=== PATIENT | female | born 1965 | race Caucasian/White ===

== ENCOUNTER 2016-06-15 11:01 | Emergency (ER) | payer OTHER ==
[~2016-06-15] VITALS: Ht 152.4 cm; Wt 90.3 kg
[~2016-06-15 11:01] MED LIST: LEVOTHYROXINE100 MC1 PO; LIPITOR40 M1 PO; MOBIC15 M1 PO; TRAMADOL HCL50 M1 PO
--- NOTE | 2016-06-15 11:47 | ED GENERAL ADULT ---
History of Present Illness General Chief Complaint: General Adult Stated Complaint: VASQUEZ/ RT EAR PAIN Source: patient Exam Limitations: no limitations Allergies Coded Allergies: Penicillins (CHILDHOOD REACTION PER PT 08/26/15) Triage Note: PT TO ED WITH C/O RIGHT EAR AND HEADACHE PAIN SINCE YESTERDAY. Triage Nurses Notes Reviewed? yes HPI: 50 year old woman with a past medical history of TMJ, obesity and hypothyroidism seen for evaluation of right sided head/ear pain for three days. She reports mild episodes of similar pain throughout her life that respontaneously resolve. She was reported diagnosed with TMJ by her dentist in the distant past. (AIMEE RING MD) Vital Signs & Intake/Output Vital Signs & Intake/Output Vital Signs Date Time Temp Pulse Resp B/P Pulse O2 O2 Flow FiO2 Ox Delivery Rate 06/15 1356 98.7 78 18 145/78 98 Room Air 06/15 1108 98.0 80 20 130/73 98 Room Air Room Air Reconcile Medications Atorvastatin Calcium (Lipitor) (Unknown Strength) TABLET (Unknown Dose) PO DAILY CHOLESTEROL (Reported) Diazepam (Valium) 5 MG TABLET 1 TAB PO BID MUSCLE SPASM Levothyroxine Sodium 100 MCG TABLET 0.5 TAB PO DAILY AC THYROID (Reported) Meloxicam (Mobic) 15 MG TABLET 1 TAB PO DAILY PAIN Naproxen 500 MG TABLET 1 TAB PO BID PAIN Oxycodone HCl/Acetaminophen (Percocet 5-325 MG Tablet) 5 MG-325 MG TABLET 1 TAB PO BID SEVERE PAIN (FRANCES NEUMANN,JACOBO Kelly) Past History Travel History Traveled to [place] past 21 day No Medical History Any Pertinent Medical History? 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 No (AIMEE RING MD) Review of Systems Review of Systems Constitutional: Reports: see HPI. (AIMEE RING MD) Review of Systems EENTM: Reports: see HPI. Respiratory: Reports: no symptoms. Cardiovascular: Reports: no symptoms. GI: Reports: no symptoms. Genitourinary: Reports: no symptoms. Musculoskeletal: Reports: no symptoms. Neurological/Psychological: Reports: no symptoms. Immunologic/Allergic: Reports: no symptoms. (FRANCES NEUMANN,JACOBO Kelly) Physical Exam Physical Exam General Appearance: well developed/nourished, alert, awake, anxious, moderate distress Comments: General -well-developed, obese middle-aged woman in moderate distress HEENT - NCAT, PERRLA, EOMI, severe right temporal tenderness, no frontal sinus tenderness, mild right maxillary sinus tenderness, extra auditory canals clear bilaterally, moderate right sided neck tenderness, right TMJ tenderness with mild soft tissue swelling no appreciated stones, anicteric sclera Cardio - S1, S2 w/o murmurs/gallops/rubs Resp - CTA bilaterally w/o wheezing/rhochi/crackles GI - soft, nontender, nondistended, bowel sounds present Neuro - Awake and alert, CN II - XII grossly intact Extremities -normal pulses, no cyanosis/clubbing/edema Core Measures ACS in differential dx? No CVA/TIA Diagnosis: No Severe Sepsis Present: No Septic Shock Present: No (JHONATHAN NEUMANN,AIMEE) Physical Exam Head: atraumatic, normal appearance Eyes: Bilateral: PERRL, EOMI. Ears, Nose, Throat: very painful to open mouth, positive click on right, TN's normal Neck: normal inspection, supple, full range of motion Respiratory: normal breath sounds, chest non-tender, no respiratory distress, lungs clear Cardiovascular: regular rate/rhythm, normal peripheral pulses Gastrointestinal: normal bowel sounds, soft, non-tender, no organomegaly Extremities: normal inspection, normal capillary refill, normal range of motion, no edema Neurologic/Psych: no motor/sensory deficits, awake, alert, oriented x 3, normal mood/affect Skin: intact, normal color, warm/dry (FRANCES NEUMANN,JACOBO Kelly) Progress Differential Diagnoses I considered the following diagnoses in my evaluation of the patient: TMJ, parotitis, Meningitis, temporal arteritis, dental abscess Initial ED EKG: none Comments: Present illness it is reasonable to consider diagnoses such as TMJ exacerbation, parotitis, meningitis, and temporal cell arteritis. For evaluation of these conditions a complete blood count was obtained that was within normal limits, ESR was 20, and serum chemistries were also within normal limits. Patient's physical examination is highly suggestive of TMJ and given her history of this she was given Valium and morphine for pain relief. She is to be discharged home with prescription of Valium and instruction to follow-up with her dentist as an outpatient for further evaluation. (JHONATHAN NEUMANN,AIMEE) Differential Diagnoses I considered the following diagnoses in my evaluation of the patient: Plan of Care: Orders Procedure Date/time Status MAGNESIUM 06/15 1144 Complete WESTERGREN SED RATE 06/15 1144 Complete COMPREHENSIVE METABOLIC PANEL 06/15 1144 Complete CBC WITHOUT DIFFERENTIAL 06/15 1144 Complete Current Medications Sig/Arnulfo Start time Last Medication Dose Stop Time Status Admin Oxycodone/ 1 TAB ONCE ONE 06/15 1145 CAN Acetaminophen 06/15 1146 (Percocet) Laboratory Tests 06/15/16 1155: Anion Gap 11, Estimated GFR > 60, BUN/Creatinine Ratio 14.3, Glucose 106 H, Calcium 9.7, Magnesium 1.9, Total Bilirubin 0.6, AST 32, ALT 53 H, Alkaline Phosphatase 116, Total Protein 8.0, Albumin 4.6, Globulin 3.4, Albumin/Globulin Ratio 1.4, CBC w Diff NO MAN DIFF REQ, RBC 5.41 H, MCV 85.9, MCH 28.7, RDW 14.1 , MPV 8.0, Gran % 74.2, Lymphocytes % 17.8 L, Monocytes % 6.2, Eosinophils % 1.4, Basophils % 0.4, Absolute Granulocytes 7.5 H, Absolute Lymphocytes 1.8, Absolute Monocytes 0.6, Absolute Eosinophils 0.1, Absolute Basophils 0, PUBS MCHC 33.5, ESR Westergren 20 Diagnostic Imaging: Viewed by Me: CT Scan. Discussed w/RAD: CT Scan. Radiology Impression: PATIENT: GUY LANE PRESENT AGE: 50 PATIENT ACCOUNT NO: [id number] : 64 LOCATION: [facility] ORDERING PHYSICIAN: AIMEE RING MD SERVICE DATE: 06/15/16 EXAM TYPE: CAT - CT CERV SPINE WO IV CONTRAST EXAMINATION: CT CERVICAL SPINE WITHOUT CONTRAST CLINICAL INFORMATION: Head injury following fall 3 days ago. COMPARISON: Plain films of the cervical spine 08/26/2015. TECHNIQUE: Multiple axial CT images of the cervical spine were performed, without intravenous contrast. 2-D coronal and sagittal reformatted images were obtained at the acquisition workstation. DLP: 950 mGy-cm FINDINGS: No acute cervical spine fracture or subluxation is identified. There is mild straightening of the cervical spine, which is entirely nonspecific but may be secondary to patient neck positioning within the CT gantry or muscle spasming. The prevertebral soft tissues are within normal limits. The atlantoaxial and craniocervical junctions are intact. The visualized bilateral lung apices are grossly clear. IMPRESSION: No acute cervical spine fracture or subluxation. DICTATED BY: JEANNIE TORREZ MD DATE/TIME DICTATED:1536 TALENT ACQUISITION LEAD:TANA DATE/TIME TRANSCRIBED:06/15/161536 CONFIDENTIAL, DO NOT COPY WITHOUT APPROPRIATE AUTHORIZATION. <Electronically signed in Other Vendor System> SIGNED BY: JEANNIE TORREZ MD 06/15/16 1544, PATIENT: GUY LANE PRESENT AGE: 50 PATIENT ACCOUNT NO: [id number] : 64 LOCATION: [facility] ORDERING PHYSICIAN: AIMEE RING MD SERVICE DATE: 06/15/16 EXAM TYPE: CAT - CT MAXILLOFACIAL W/O CON EXAMINATION: CT MAXILLOFACIAL WITHOUT CONTRAST CLINICAL INFORMATION: Status post fall and head injury 3 days ago. COMPARISON: None. TECHNIQUE: Multidetector helical imaging was performed in the axial plane with generation of coronal and sagittal reformatted images. DLP: 950 mGy-cm FINDINGS: There are age- indeterminate bilateral nasal bone fractures as well as nondisplaced fractures involving the nasal processes of the maxilla. No additional maxillofacial fractures are identified. The lamina papyracea are intact. The bilateral globes and orbits appear unremarkable. No orbital or floor orbital roof fractures are identified and there is no significant intraconal or extraconal stranding. No retrobulbar hematoma is visualized. Evaluation of the paranasal sinuses demonstrates minimal to moderate mucosal thickening of the left maxillary sinus. The remaining imaged paranasal sinuses and mastoid air cells are well aerated. The carotid canals are normally covered by bone. The ethmoid roofs are symmetric. The bilateral temporomandibular joints are intact. There are degenerative changes involving the left temporomandibular joint with associated flattening of the left mandibular condyle. Incidental note is made of an unerupted mature tube within the maxilla. Limited evaluation of the intracranial contents demonstrates no acute intracranial findings. IMPRESSION: 1. Age- indeterminate bilateral nasal bone fractures as well as nondisplaced fractures involving the nasal processes of the maxilla. Correlate with physical exam and patient symptomatology. 2. Degenerative changes of the left temporal mandibular joint, with associated flattening of the mandibular condyle. No appreciable dislocation of the bilateral temporomandibular joints. DICTATED BY: JEANNIE TORREZ MD DATE/TIME DICTATED:06/15/161515 TALENT ACQUISITION LEAD:TANA DATE/TIME TRANSCRIBED:06/15/161515 CONFIDENTIAL, DO NOT COPY WITHOUT APPROPRIATE AUTHORIZATION. <Electronically signed in Other Vendor System> SIGNED BY: JEANNIE TORREZ MD 06/15/16 4835 (FRANCES NEUMANN,JACOBO Kelly) Departure Departure Disposition: HOME OR SELF CARE Condition: Stable Clinical Impression Primary Impression: TMJ syndrome Referrals: JA NEUMANN,DAVE CASTRO (PCP/Family) Additional Instructions: Take your naproxen, valium, and percocet as directed. Follow up with a Dentist after discharge for further evaluation of your Jaw Pain. Departure Forms: Customer Survey General Discharge Information (JHONATHAN NEUMANN,AIMEE) Departure Prescriptions: Current Visit Scripts Diazepam (Valium) 1 TAB PO BID #14 TAB Naproxen 1 TAB PO BID #60 TAB Oxycodone HCl/Acetaminophen (Percocet 5-325 MG Tablet) 1 TAB PO BID #10 TAB Resident Co-Sign Statement Statement: ED Attending supervision documentation- [x] I saw and evaluated the patient. I have also reviewed all the pertinent lab results and diagnostic results. I agree with the findings and the plan of care as documented in the Resident's documentation. [x] I have reviewed the ED Record and agree with the Resident's documentation. [] Additions or exceptions (if any) to the Resident's note and plan are summarized below: [Personally seen and examined this patient. The deep no agree with what has been written. Patient presents with right-sided jaw pain radiating up to her head and down into her neck. Patient states the pain is constant and increases when she attempts to open her mouth. Patient states that she does suffer from TMJ but is never been this bad. There is no difficulty breathing or swallowing. Pain 7 out of 10. On exam she has a clip on the right side. Her blood work and CAT scan are normal. Patient will be discharged home with follow-up with dental.] (FRANCES NEUMANN,JACOBO Kelly) Critical Care Note Critical Care Note Critical Care Time: non-applicable (JHONATHAN NEUMANN,AIMEE)
[2016-06-15 12:07] LABS: ABSOLUTE BASOPHIL COUNT 0 /CUMM (0.0-0.2); ABSOLUTE EOSINOPHIL COUNT 0.1 /CUMM (0.0-0.7); ABSOLUTE GRANULOCYTE CT 7.5 /CUMM (1.4-6.5); ABSOLUTE LYMPH COUNT 1.8 /CUMM (1.2-3.4); ABSOLUTE MONOCYTE COUNT 0.6 /CUMM (0.10-0.60); BASOPHIL % 0.4 % (0.0-2.0); EOSINOPHIL % 1.4 % (0-5); GRANULOCYTE % 74.2 % (42.2-75.2); HEMATOCRIT 46.5 % (37-47); MEAN CORPUSCULAR HGB 28.7 PG (27.0-31.0); MEAN CORPUSCULAR HGB CONC 33.5 G/DL (33.0-37.0); MEAN CORPUSCULAR VOLUME 85.9 FL (81.0-99.0); PLATELET COUNT 339 /CUMM (130-400); RBC DISTRIBUTION WIDTH 14.1 % (11.5-14.5); RED BLOOD CELL CT 5.41 /CUMM (4.20-5.40); WHITE BLOOD CELL COUNT 10.2 /CUMM (4.8-10.8)
[2016-06-15] MEDS ORDERED: NAPROXEN500 M2 PO (13:33)
[2016-06-15] MEDS ORDERED: VALIUM5 M2 PO (13:33)
[2016-06-15] MEDS ORDERED: PERCOCET 5-3251 EACH PO (13:33)
[2016-06-15 13:56] VITALS: BP 145/78
--- NOTE | 2016-06-15 15:41 | CT SCAN REPORT ---
EXAMINATION: CT MAXILLOFACIAL WITHOUT CONTRAST CLINICAL INFORMATION: Status post fall and head injury 3 days ago. COMPARISON: None. TECHNIQUE: Multidetector helical imaging was performed in the axial plane with generation of coronal and sagittal reformatted images. DLP: 950 mGy-cm FINDINGS: There are age-indeterminate bilateral nasal bone fractures as well as nondisplaced fractures involving the nasal processes of the maxilla. No additional maxillofacial fractures are identified. The lamina papyracea are intact. The bilateral globes and orbits appear unremarkable. No orbital or floor orbital roof fractures are identified and there is no significant intraconal or extraconal stranding. No retrobulbar hematoma is visualized. Evaluation of the paranasal sinuses demonstrates minimal to moderate mucosal thickening of the left maxillary sinus. The remaining imaged paranasal sinuses and mastoid air cells are well aerated. The carotid canals are normally covered by bone. The ethmoid roofs are symmetric. The bilateral temporomandibular joints are intact. There are degenerative changes involving the left temporomandibular joint with associated flattening of the left mandibular condyle. Incidental note is made of an unerupted mature tube within the maxilla. Limited evaluation of the intracranial contents demonstrates no acute intracranial findings. IMPRESSION: 1. Age-indeterminate bilateral nasal bone fractures as well as nondisplaced fractures involving the nasal processes of the maxilla. Correlate with physical exam and patient symptomatology. 2. Degenerative changes of the left temporal mandibular joint, with associated flattening of the mandibular condyle. No appreciable dislocation of the bilateral temporomandibular joints.
--- NOTE | 2016-06-15 15:44 | CT SCAN REPORT ---
EXAMINATION: CT CERVICAL SPINE WITHOUT CONTRAST CLINICAL INFORMATION: Head injury following fall 3 days ago. COMPARISON: Plain films of the cervical spine 08/26/2015. TECHNIQUE: Multiple axial CT images of the cervical spine were performed, without intravenous contrast. 2-D coronal and sagittal reformatted images were obtained at the acquisition workstation. DLP: 950 mGy-cm FINDINGS: No acute cervical spine fracture or subluxation is identified. There is mild straightening of the cervical spine, which is entirely nonspecific but may be secondary to patient neck positioning within the CT gantry or muscle spasming. The prevertebral soft tissues are within normal limits. The atlantoaxial and craniocervical junctions are intact. The visualized bilateral lung apices are grossly clear. IMPRESSION: No acute cervical spine fracture or subluxation.
== END 2016-06-15 16:08 ==
LOC: ERH 11:01
PROVIDERS: Internal Medicine Interventional Cardiology
DX: M26.621 Arthralgia of right temporomandibular joint (principal); H92.01 Otalgia, right ear; E03.9 Hypothyroidism, unspecified
CPT/HCPCS: 96361; 96372; 96374; 96375; 96376; J1885; J2405; J3360

== ENCOUNTER → 2017-06-13 | Day surgery (SDC) | payer OTHER ==
[~2017-06-13] VITALS: Ht 157.5 cm; Wt 90.7 kg
[~2017-06-13] MED LIST changes: +NAPROXEN500 M2 PO; +PERCOCET 5-3251 EACH PO; +TAMIFLU75 M1 PO; +VALIUM5 M2 PO; +ZITHROMAX250 M2 PO
--- NOTE | 2017-06-18 14:57 | Operative Report ---
Operative/Inv Procedure Report Surgery Date: 06/13/17 Name of Procedure: Diagnostic laparoscopy lysis of adhesions Pre-Operative Diagnosis: Pelvic pain Post-Operative Diagnosis: Same 1.1. Estimated Blood Loss: less than 50ml Surgeon/Manager Mental Health: Stephane NEUMANN,Libertad Laguerre Anesthesia: general endotracheal tube, block Operative/Procedure Note Note: Procedure note patient was taken the operating room placed supine position after adequate anesthesia patient was dorsal position the vagina prepped draped so fashion bladder was catheterized examination under anesthesia performed a on at this point sponge stick with 2 sponges placed into the vagina surgeon regowned and gloved at the level of the umbilicus stab incision was made to allow for for the Veress needle. The abdomen was insufflated approximately 2-1/2 L of CO2 to liver edge dullness at which point the Veress needle was removed the incision at the umbilicus was extended to allow for the entry of a 10 mm trocar through that sheath a laparoscope was placed under direct visualization a 5 mm port was placed to bring minutes of symptoms pubis in the midline through that port peritoneal washings were obtained a scissor was placed and lysis of adhesions was performed hemostasis was apparent at the end the case wants was removed from the abdomen the incision was at the umbilicus was oversewn using 0 skin was reapproximated both incisions using 30 Marcaine was injected underneath skin sterile dressings were applied to both incisions at the end of the case the urine was clear the counts correct the sponges were removed from the vagina the patient was returned spine position she was awakened from anesthesia the Garrison was removed the patient was TRANSPORTED extubated awakened from anesthesia to the recovery room
== END ==
LOC: STS 02:57
DX: R10.2 Pelvic and perineal pain (principal); K66.0 Peritoneal adhesions (postprocedural) (postinfection); E03.9 Hypothyroidism, unspecified; Z86.14 Personal history of Methicillin resistant Staphylococcus aureus infection
CPT/HCPCS: 88305; C9399; J0131; J2250; J3250

== ENCOUNTER 2017-06-15 13:32 | Emergency (ER) | payer OTHER ==
[~2017-06-15] VITALS: Ht 152.4 cm; Wt 90.7 kg
[~2017-06-15 13:32] MED LIST changes: -TAMIFLU75 M1 PO; -ZITHROMAX250 M2 PO
--- NOTE | 2017-06-15 16:00 | ED GENERAL ADULT ---
History of Present Illness General Chief Complaint: General Adult Allergies Coded Allergies: Penicillins (CHILDHOOD REACTION PER PT 08/26/15) procaine (From NOVOCAIN) (SWELLING 06/11/17) Reconcile Medications Atorvastatin Calcium (Lipitor) (Unknown Strength) TABLET (Unknown Dose) PO DAILY CHOLESTEROL (Reported) Azithromycin (Zithromax) 250 MG TABLET 1 DP PO AD PNEUMONIA 2 the first day followed by 1 for days 2-5 Diazepam (Valium) 5 MG TABLET 1 TAB PO BID MUSCLE SPASM Levothyroxine Sodium 100 MCG TABLET 0.5 TAB PO DAILY AC THYROID (Reported) Meloxicam (Mobic) 15 MG TABLET 1 TAB PO DAILY PAIN Naproxen 500 MG TABLET 1 TAB PO BID PAIN Oseltamivir Phosphate (Tamiflu) 75 MG CAPSULE 1 CAP PO BID FLU Oxycodone HCl/Acetaminophen (Percocet 5-325 MG Tablet) 5 MG-325 MG TABLET 1 TAB PO BID SEVERE PAIN Triage Note: PT C/O SUDDEN ONSET OF FATIGUE, CHILLS, BODY ACHES, NAUSEA, SORE THROAT, AND COUGH. PT REPORTS NO RELIEF FROM ROBITUSSIN DM THAT SHE TOOK LAST WEEK. PT REPORTS SHE GOT FLU AND PNEUMONIA SHOT THIS YEAR. Onset: Abrupt Duration: day(s): Timing: recent history HPI: I agree with the above documentation of the resident. The above history and physical was taken by the resident and I agree with what was written. She complains of a cough, myalgias, also has nasal congestion. Influenza test was negative. Chest x-ray showed left lower lobe pneumonia. (William Cook DO) General Stated Complaint: PT FEVER,BODY ACHES,CAN;TBREATH Source: patient Exam Limitations: no limitations Vital Signs & Intake/Output Vital Signs & Intake/Output Vital Signs Date Time Temp Pulse Resp B/P B/P Pulse O2 O2 Flow FiO2 Mean Ox Delivery Rate 06/15 1812 98.7 64 16 115/65 97 Room Air 06/15 1710 99.6 72 17 124/81 97 Room Air 06/15 1338 98.4 91 18 138/84 96 Room Air Room Air Triage Nurses Notes Reviewed? yes HPI: 51yoF w/ hx of hypothyroidism p/w cough and myalgiasx x24hrs Associated sx are fatigue, chills, dizziness, subjective fevers, nausea, sorethroat. She had a ovarian cystectomy 3days ago and so thought sore throat might be 2/2 intubation. The rest of her sx started yesterday and so she tried Vicodin and Ibuprofen given to her after her surgery. However her sx have generally worsened today. She is afraid she might be developing PNA although she has no SOB, CP or palpitations. Cough is sometimes productive but not paroxysmal. Her last meal was last night. She is not tolerating any PO. 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 see below for history Surgical History Surgical History: none Family History Hx Contributory? Yes (Dallas Barrios) Review of Systems Review of Systems Constitutional: Reports: malaise, weakness. EENTM: Reports: nasal congestion, throat pain. Respiratory: Reports: cough. Denies: short of breath. Cardiovascular: Denies: chest pain. GI: Denies: abdominal pain. Genitourinary: Reports: no symptoms. Musculoskeletal: Reports: no symptoms. Skin: Denies: rash. Neurological/Psychological: Reports: no symptoms. Hematologic/Endocrine: Reports: no symptoms. (William Cook DO) Review of Systems Constitutional: Reports: see HPI. (Dallas Barrios) Physical Exam Physical Exam General Appearance: no apparent distress Head: atraumatic, normal appearance Eyes: Bilateral: normal appearance, PERRL, EOMI. Ears, Nose, Throat: normal pharynx, normal ENT inspection Neck: normal inspection, supple Respiratory: normal breath sounds, chest non-tender, no respiratory distress Cardiovascular: regular rate/rhythm Peripheral Pulses: 4+ radial (R), 4+ radial (L) Gastrointestinal: soft, non-tender Back: normal inspection Extremities: normal inspection, no edema Neurologic/Psych: no motor/sensory deficits, awake, alert, oriented x 3 Skin: intact, normal color, warm/dry (William Cook DO) Physical Exam General Appearance: well developed/nourished, mild distress Core Measures ACS in differential dx? No CVA/TIA Diagnosis: No Sepsis Present: No Sepsis Focused Exam Completed? No (Opare-Loco STUDENT,D[place]) Progress Differential Diagnoses I considered the following diagnoses in my evaluation of the patient: (William Cook DO) Differential Diagnoses I considered the following diagnoses in my evaluation of the patient: Including but not limited to [PNA, viral cough, influenza, bronchitis] Plan of Care: Orders Procedure Date/time Status TROPONIN LEVEL 06/15 1643 Complete COMPREHENSIVE METABOLIC PANEL 06/15 1643 Complete CBC WITHOUT DIFFERENTIAL 06/15 1643 Complete EKG 06/15 1643 Active RAPID VIRAL INFLUENZA A 06/15 1337 Complete Laboratory Tests 06/15/17 1653: Anion Gap 10, Estimated GFR > 60, BUN/Creatinine Ratio 16.7, Glucose 90, Calcium 9.0, Total Bilirubin 0.3, AST 32, ALT 53 H, Alkaline Phosphatase 95, Troponin I < 0.01, Total Protein 6.8, Albumin 4.1, Globulin 2.7, Albumin/Globulin Ratio 1.5 , CBC w Diff NO MAN DIFF REQ, RBC 4.87, MCV 86.4, MCH 28.4, MCHC 32.9 L, RDW 13.8, MPV 7.9, Gran % 67.7, Lymphocytes % 21.5, Monocytes % 9.3, Eosinophils % 0.9, Basophils % 0.6, Absolute Granulocytes 3.7, Absolute Lymphocytes 1.2, Absolute Monocytes 0.5, Absolute Eosinophils 0, Absolute Basophils 0 Microbiology 06/15 1342 NASOPHARYN: Influenza Virus A & B Rapid Smear - COMP 4:30 She scores low on Centor criteria (lymphadenopathy and fevers). Cough not consistent w/ pertusis. Patient w/ likely viral syndrome. Although flu swab negative, patient possibly has the flu. Because of her hx of PNA and her complaints, will r/o w/ a chest xray. CBC, CMP, EKG and trops will also be ordered 5:17PM Patient still in mild distress. IV tylenol rodered. EKG benign 5:35PM CXR shows likely evolving PNA. CURB-65 low. Patient to be treated for outpatient CAP w/ Azithromycin. She has no allergies to macrolides. Patient to be discharged home with a Z-britany, Tamiflu and contact and return precautions. Initial ED EKG: normal axis, NSR, rhythm, rate (Kate-Dallas Harding) Departure Departure Disposition: HOME OR SELF CARE Condition: Stable Clinical Impression Primary Impression: Pneumonia Secondary Impressions: Viral syndrome Referrals: Patient Has No Primary Care Dr (PCP/Family) Departure Forms: Customer Survey General Discharge Information Prescriptions: Current Visit Scripts Azithromycin (Zithromax) 1 DP PO AD #6 TAB 2 the first day followed by 1 for days 2-5 Oseltamivir Phosphate (Tamiflu) 1 CAP PO BID #10 CAP Comments Labs Reviewed and are unremarkable. Chest x-ray shows questionable infiltrate. I spoke with Dr. Lua; He agrees with the plan. The patient's abdomen is soft and nontender. She has a small incision at the umbilicus.PATIENT: GUY LANE PRESENT AGE: 51 PATIENT ACCOUNT NO: [id number] : 64 LOCATION: [facility] ORDERING PHYSICIAN: William Cook DO SERVICE DATE: 06/15/17 EXAM TYPE: RAD - XRY-CHEST XRAY, TWO VIEWS EXAMINATION: XR CHEST CLINICAL INFORMATION: Cough, fever. COMPARISON: None TECHNIQUE: 2 views of the chest were obtained. FINDINGS: Subtle airspace opacities noted at the retrocardiac region of the left lower lobe of the lung, most consistent with evolving pneumonia. Follow-up radiograph to document resolution is recommended. The remainder of the lung pizano are clear. The cardiomediastinal silhouette is within normal limit. There is no pleural effusion present. Mild multilevel degenerative spondylosis is seen. The visualized upper abdomen is unremarkable. IMPRESSION: Subtle airspace opacity at left lower lobe of the lung, most consistent with evolving pneumonia. Follow-up radiograph to resolution is recommended. DICTATED BY: Krystin Amor MD DATE/TIME DICTATED:06/15/171710 FARMHAND:TANA DATE/TIME TRANSCRIBED:06/15/171710 CONFIDENTIAL, DO NOT COPY WITHOUT APPROPRIATE AUTHORIZATION. <Electronically signed in Other Vendor System> SIGNED BY: Krystin Amor MD 06/15/17 6496 (William Cook DO) Critical Care Note Critical Care Note Critical Care Time: non-applicable (William Cook DO)
[2017-06-15 17:05] LABS: ABSOLUTE BASOPHIL COUNT 0 /CUMM (0.0-0.2); ABSOLUTE EOSINOPHIL COUNT 0 /CUMM (0.0-0.7); ABSOLUTE GRANULOCYTE CT 3.7 /CUMM (1.4-6.5); ABSOLUTE LYMPH COUNT 1.2 /CUMM (1.2-3.4); ABSOLUTE MONOCYTE COUNT 0.5 /CUMM (0.10-0.60); BASOPHIL % 0.6 % (0.0-2.0); EOSINOPHIL % 0.9 % (0-5); GRANULOCYTE % 67.7 % (42.2-75.2); HEMATOCRIT 42.1 % (37-47); MEAN CORPUSCULAR HGB 28.4 PG (27.0-31.0); MEAN CORPUSCULAR HGB CONC 32.9 G/DL (33.0-37.0); MEAN CORPUSCULAR VOLUME 86.4 FL (81.0-99.0); MEAN PLATELET VOLUME 7.9 FL (7.4-10.4); PLATELET COUNT 260 /CUMM (130-400); RBC DISTRIBUTION WIDTH 13.8 % (11.5-14.5); RED BLOOD CELL CT 4.87 /CUMM (4.20-5.40); WHITE BLOOD CELL COUNT 5.5 /CUMM (4.8-10.8)
--- NOTE | 2017-06-15 17:16 | RADIOLOGY REPORT ---
EXAMINATION: XR CHEST CLINICAL INFORMATION: Cough, fever. COMPARISON: None TECHNIQUE: 2 views of the chest were obtained. FINDINGS: Subtle airspace opacities noted at the retrocardiac region of the left lower lobe of the lung, most consistent with evolving pneumonia. Follow-up radiograph to document resolution is recommended. The remainder of the lung pizano are clear. The cardiomediastinal silhouette is within normal limit. There is no pleural effusion present. Mild multilevel degenerative spondylosis is seen. The visualized upper abdomen is unremarkable. IMPRESSION: Subtle airspace opacity at left lower lobe of the lung, most consistent with evolving pneumonia. Follow-up radiograph to resolution is recommended.
[2017-06-15] MEDS ORDERED: ZITHROMAX250 M2 PO (18:06)
[2017-06-15] MEDS ORDERED: TAMIFLU75 M1 PO (18:06)
[2017-06-15 18:12] VITALS: BP 115/65
== END 2017-06-15 18:18 ==
LOC: ERH 13:32
PROVIDERS: Emergency Medicine
DX: J18.9 Pneumonia, unspecified organism (principal); B34.9 Viral infection, unspecified; E03.9 Hypothyroidism, unspecified
CPT/HCPCS: 71046; 87804; 87804-59; 93005; 93010; 96374